=== PATIENT | male | born 1945 | race Caucasian/White ===

== ENCOUNTER 2021-07-25 02:17 | Emergency (ER) | payer MEDICARE ==
[~2021-07-25] VITALS: Ht 185.4 cm; Wt 102.1 kg
[~2021-07-25 02:17] MED LIST: ASPIRIN EC325 M1 PO; ENALAPRIL MALEA20 MG PO; FISH OIL 1,2001 EAC4 PO; MULTIVITAMINS1 EAC7 PO; PRILOSEC 20 MG20 MG PO; SIMVASTATIN20 MG PO; TOPROL XL50 MG PO; VITAMIN D3 COM1 EACH PO
[2021-07-25] MEDS ORDERED: ARICEPT10 M1 PO (02:26)
[2021-07-25] MEDS ORDERED: TOPROL XL25 MG PO (02:26)
[2021-07-25] MEDS ORDERED: PROTONIX40 M4 PO (02:27)
[2021-07-25] MEDS ORDERED: ENALAPRIL MALEA20 MG PO (02:27)
[2021-07-25] MEDS ORDERED: VITAMIN B12-FO1 EAC1 PO (02:27)
[2021-07-25] MEDS ORDERED: ASA81BEC PO (02:28)
[2021-07-25] MEDS ORDERED: ACETAMINOPHEN (02:28)
[2021-07-25] MEDS ORDERED: SUPER THERAVIT1 EACH PO (02:29)
[2021-07-25 02:44] LABS: ABSOLUTE BASOPHILS 0.1 thou/uL (0.0-0.2); ABSOLUTE EOSINOPHILS 0.2 thou/uL (0.0-0.7); ABSOLUTE LYMPHOCYTES 1.7 thou/uL (0.8-5.3); ABSOLUTE MONOCYTES 0.5 thou/uL (0.0-1.2); ABSOLUTE NEUTROPHILS 4.3 thou/uL (1.6-8.1); BASOPHILS 0.9 %; EOSINOPHILS 2.3 %; HEMATOCRIT 45.2 % (42.0-52.0); HEMOGLOBIN 15.5 gm/dL (14.0-18.0); LYMPHOCYTES 25.6 %; MCHC 34.2 g/dL (28.0-37.0); MCV 102.4 fL (80.0-100.0); MONOCYTES 7.7 %; MPV 8.8 fl. (7.2-11.1); NUCLEATED RBCS 0 /100WBC; PLATELET COUNT* 122 thou/uL (150-400); POLYS 63.5 %; RBC 4.42 mil/uL (4.50-6.00); RDW-CV 12.8 % (10.5-14.5); WBC 6.8 thou/uL (4.0-11.0)
[2021-07-25 02:55] LABS: CALCIUM 8.3 mg/dL (8.5-10.1); CREATININE 1.2 mg/dL (0.6-1.3); POTASSIUM 3.8 mmol/L (3.5-5.1)
[2021-07-25 03:05] LABS: TOTAL BILIRUBIN 0.7 mg/dL (<0.1-1.0); TOTAL PROTEIN 6.6 g/dL (6.4-8.2)
[2021-07-25 05:12] VITALS: BP 124/69
--- NOTE | 2021-07-25 11:24 | EKG ---
[place] [address] ELECTROCARDIOGRAM REPORT Name: KENDRICK BERRY JR Room: [facility]#: [id number] Admission: 07/25/21 Attend Phys: Discharge: 07/25/21 Date of : 41 Date of Service: 07/25/21221 Report #: [id number] THIS REPORT FOR: //name// [facility] ED Test Date: 2021-07-25 Test Time: 02:22:27 Pat Name: KENDRICK BERRY Department: Room: Gender: Head Of Business Development: [place] : 1945 Requested By: Marjorie Reed Order Number: [id number] MD: Kings Santillan Measurements Intervals [place] Rate: 70 P: 24 DE: 211 QRS: -64 QRSD: 118 T: 106 QT: 411 QTc: 444 Interpretive Statements Sinus rhythm Incomplete left bundle branch block Baseline wander in lead(s) II,III,aVF Compared to ECG 12/23/2013 19:37:23 Incomplete left bundle-branch block now present Sinus bradycardia no longer present First degree AV block no longer present Left-axis deviation no longer present ST (T wave) deviation has diminished Electronically Signed On 07-25-2021 11:24:18 [employer]LECTR[employer]PERVIS[employer] by Kings Santillan [email or web address] <ELECTRONICALLY SIGNED> By: Kings Santillan MD, [facility] 07/25/21 1124 1 1 Kings Santillan MD, [facility] /EPI
== END 2021-07-25 05:12 | disposition home or self-care (01) ==
LOC: M.ERS 02:17
PROVIDERS: Emergency Medicine
DX: R07.89 Other chest pain (principal); Z20.822 Contact with and (suspected) exposure to COVID-19; R51.9 Headache, unspecified; R11.0 Nausea; I25.2 Old myocardial infarction; E78.00 Pure hypercholesterolemia, unspecified; I10 Essential (primary) hypertension; Z87.442 Personal history of urinary calculi; Z98.61 Coronary angioplasty status; Z79.899 Other long term (current) drug therapy; Z79.82 Long term (current) use of aspirin; Z87.891 Personal history of nicotine dependence